=== PATIENT | male | born 1955 | race Two or more races ===

== ENCOUNTER 2017-11-10 13:30 | Day surgery (SDC) | payer OTHER ==
[2017-11-04 13:59] VITALS: BMI 27.3
[2017-11-10] MEDS: oxyCODONE HCL 10 MG SUSTAINED ACTING TABLET PO ONE ×2 (08:10→15:25)
--- NOTE | 2017-11-10 10:36 | HP ---
History & Physical Update - History History: No Change - Physical Physical: No Change - Assessment Assessment: No Change - Plan Plan: No Change (full H&P in chart from 11/05-)
[~2017-11-10 13:30] MED LIST: BSS (NA/CA/MG/K) BALANCED SALT SOLUTION OPHTH SOLN 15 ML BOTTLE ONE; LACTATED RINGERS SOLUTION 1,000 ML IV SCH; LIDOCAINE 1%/EPI 1:100000 (20 ML MULTI DOSE VIAL) ONE; MIDAZOLAM HCL 2 MG/2 ML SINGLE DOSE VIAL ONE; ONDANSETRON 4 MG/2 ML VIAL IVPUSH PRN; PROPOFOL 20 ML ONE; ROCURONIUM BROMIDE 50 MG/5 ML VIAL ONE; SUCCINYLCHOLINE CHLORIDE 200 MG/10 ML VIAL ONE; THROMBIN (BOVINE) 5,000 UNIT VIAL TP ONE; fentaNYL CITRATE 250 MCG/5 ML VIAL ONE; oxyCODONE HCL 5 MG TABLET PO PRN
--- NOTE | 2017-11-10 13:42 | OP ---
Operative Note - Note: Operative Date: 11/10/17 Pre-Operative Diagnosis: spinal stenosis, cervcial myelopathy Operation: anterior cervical disectomy fusion of C3-C4 and C4-C5 Surgeon: Peyman Valentino Assisted Living Assistant: Sophie Engle Anesthesiologist/APPOINTMENT SCHEDULER: Laith Craig Anesthesia: General Specimens Removed: disc of C3-4 and C4-5 Estimated Blood Loss (mls): 30 Fluid Volume Replaced (mls): 900 Operative Report Dictated: Yes
--- NOTE | 2017-11-10 13:43 | SURG ---
Surgery Client Leader Note Client Leader: Sophie Engle PA-C Date of Service: 11/10/17 Diagnosis: cervical stenosis, cervical myelopathy Procedure: anteior cervcial disectomy fusion of C3-C4 and C4-C5 I was present for the entirety of the operative procedure. For further detail, please refer to operative report. Visit type - Case Type Case Type: Scheduled - Emergency Emergency Visit: No - New patient This patient is new to me today: Yes Date on this admission: 11/10/17
[2017-11-10] MEDS ORDERED: oxyCODONE HCL 5 MG TABLET PO PRN ×2 (13:48)
[2017-11-10] MEDS ORDERED: PROMETHAZINE HCL 25 MG/1 ML VIAL IVPUSH PRN (13:48)
[2017-11-10] MEDS ORDERED: ONDANSETRON 4 MG/2 ML VIAL IVPUSH PRN (13:48)
[2017-11-10] MEDS: diazePAM 2 MG TABLET PO ONE ×2 (14:45→15:25)
[2017-11-10] MEDS: diazePAM 2 MG TABLET PO SCH ×2 (15:26→16:36)
[2017-11-10] MEDS: traMADol HCL 50 MG TABLET PO SCH ×2 (16:37→21:34)
[2017-11-10] MEDS: ACETAMINOPHEN 325 MG TABLET (FP) PO SCH ×2 (16:38→21:34)
[2017-11-10] MEDS ORDERED: DEXAMETHASONE SOD PHOSPHATE 10 MG/1 ML VIAL ONE (19:41)
[2017-11-10] MEDS: CEFAZOLIN 1 GM/D5W 1 GM/50 ML BAG IVPB SCH (19:56)
[2017-11-10] MEDS: DEXAMETHASONE SOD PHOSPHATE 20 MG/5 ML VIAL IVPB SCH (19:56)
--- NOTE | 2017-11-10 20:51 | OP ---
DATE OF OPERATION: 11/10/2017 PREOPERATIVE DIAGNOSIS: Cervical stenosis, C3-4, C4-5. POSTOPERATIVE DIAGNOSIS: Cervical stenosis, C3-4, C4-5. PROCEDURE PERFORMED: Anterior cervical diskectomy and fusion, C3-4, C4-5; placement of instrumentation C3-4, C4-5; placement of prosthetic cages, C3-4, C4-5. SURGEON: Peyman Valentino MD PERSONAL BANKER: MERISSA Hutchins ESTIMATED BLOOD LOSS: 50 mL INTRAVENOUS FLUIDS: Per Anesthesia. ANESTHESIA: General. COMPLICATIONS: None. DISPOSITION: Patient brought to the PACU in stable condition. INDICATION FOR SURGERY: The patient is a 62-year-old gentleman who has been noticing significant pain from his neck down his arms. He has also had difficulty with waking and using his hands. X-rays and MRI were completed which noted that he had cervical stenosis at C3-4 and C4-5. He had gone through an exhaustive course of treatment for this for which included medications, physical therapy, as well as injections. Unfortunately, his pain continued to persist. Risks, benefits, and alternatives were discussed, and the patient consented to surgery. DESCRIPTION OF PROCEDURE: Patient is brought to the operating room by the anesthesia staff. After appropriate patient identification was performed, general anesthesia was administered. Appropriate anesthetic lines were placed. Neuromonitoring leads were attached. SCDs were placed on the patient. The patient was placed supine on the OR bed with his arms tucked in at the side. Two needles were placed onto his neck to rach off the C3-4 and C4-5 level. An x-ray was taken to confirm this was correct. [place] were removed, and 10 mL of lidocaine with epinephrine were injected into his neck at this time. His neck was prepped and draped in a sterile manner. At this point, timeout was completed, and an incision was made on the left side of his neck. Dissection was carried down to the platysma. The platysma was cut in line with the skin incision. Next, the interval between the sternocleidomastoid and strap muscles was developed. Next, the interval between the carotid sheath and tracheoesophagus was developed. A needle was placed into the C3-4 disk. An x-ray was taken to confirm this was correct. Needle was removed. Longus coli muscles were elevated off, and retractor blades were placed in. A [place] pin was placed into the body of C3 and C5. A knife was used to incise the disks, and distraction was applied. The microscope was brought in. Using a series of pituitaries, Kerrisons, and curettes, diskectomies were completed at C3-4 and C4-5. The endplates were decorticated at this time. A cage filled with bone graft was placed in. The [place] pin was removed. A screw was placed into the body of C3, C4, and C5. AP and lateral x-rays confirmed the instrumentation to be in good position. Final tightening was performed. A drain was placed. The platysma was closed with 2-0 Vicryl suture. Skin was closed with 3-0 Monocryl suture. Dermabond was applied. Steri-Strips were applied. A sterile dressing was applied. Patient was placed supine on the OR bed, extubated in the OR, and brought to the PACU in stable condition. Kevin PAN/[id number]
[2017-11-11] MEDS: DEXAMETHASONE SOD PHOSPHATE 20 MG/5 ML VIAL IVPB SCH ×2 (02:10→08:15)
[2017-11-11] MEDS: ACETAMINOPHEN 325 MG TABLET (FP) PO SCH ×2 (03:17→09:33)
[2017-11-11] MEDS: traMADol HCL 50 MG TABLET PO SCH ×2 (03:17→09:33)
[2017-11-11] MEDS: CEFAZOLIN 1 GM/D5W 1 GM/50 ML BAG IVPB SCH (03:17)
[2017-11-11] MEDS: diazePAM 2 MG TABLET PO SCH (06:09)
[2017-11-11 06:28] VITALS: PULSE 82
[2017-11-11] MEDS ORDERED: DEXAMETHASONE SOD PHOSPHATE 4 MG/1 ML VIAL IVPB SCH (08:14)
--- NOTE | 2017-11-11 08:54 | DS ---
Physical Exam: SUBJECTIVE: Patient seen and examined no difficulty swallowing, tolerated clears. No pain, still having some numbness to upper extremities. OBJECTIVE: Vital Signs Temperature 98.0 F 11/11/17 06:00 Pulse Rate 82 11/11/17 06:00 Respiratory Rate 19 11/11/17 06:00 Blood Pressure 143/76 11/11/17 06:00 O2 Sat by Pulse Oximetry (%) 97 11/11/17 06:27 PHYSICAL EXAM GENERAL: The patient is awake, alert, and fully oriented, in no acute distress. NECK: Trachea midline, supple. Dressing bloody, changed today. The drain was not working so I stripped it and had minima(5ml) return. The drain was pulled and a clean/dry dressing was applied. No evidence of hematoma. Fullness to the right side of his neck, thyroid goiter. LUNGS: Breath sounds equal, clear to auscultation bilaterally. HEART: Regular rate and rhythm. ABDOMEN: Soft, nontender, nondistended. EXTREMITIES: 2+ pulses, warm, well-perfused, no edema. SCDs in place. NEUROLOGICAL: Cranial nerves II through XII grossly intact. Normal speech, gait sready. 5/5 flexion/extrension and technical operations manager strength equal b/l. LABS HOSPITAL COURSE: Date of Admission:11/10/17 Date of Discharge: 11/11/17 The patient was admitted to the Med-Surg Unit after an elective repair of their cervical stenosis. Now, s/p ACDF of C3-4 and C4-C5. The day of surgery, the patient ambulated the hallways with assistance. Narcotic and non-narcotic pain management control was achieved with an oral and IV approach. POD #1, the surgical drain was removed fully intact and without incident. An xray was obtained and confirmed hardware placement at C3-4C4 and C4-C5, no fractures or dislocations. Yudith-operative IV ABX were administered. DVT prophylaxis was achieved with SCDs and early ambulation. The patient ambulated with Physical Therapy and no services were recommended upon discharge. Narcotic scripts and or muscle relaxants were checked with [facility]ICINE SPECIALIST prior to escibe. The discharge instructions and an oral pain management plan were reviewed with the patient. All questions answered. Above plan discussed with Dr. Valentino and agreed. Minutes to complete discharge: 30
[2017-11-11 09:32] VITALS: BP 142/80; TEMP 97.9
--- NOTE | 2017-11-12 14:58 | PATH ---
Surgical Pathology Report Patient Name: GLADYS FLORES Med. Rec. #: [id number] /Age/Gender: 1955 (Age: 62) / M Account: [id number] Location: [facility] AMBULATORY Taken: 11/10/2017 Received: 11/10/2017 Reported: 11/12/2017 Physicians: Peyman Valentino M.D. Specimen(s) Received DISC C3-5 Clinical History Cervical stenosis Final Diagnosis DISC C3-C5, DISCECTOMY: CARTILAGE WITH DEGENERATIVE CHANGES. Electronically Signed Kayy Pfeiffer M.D. Gross Description Received in formalin labeled "disc C3-C5," is a 1.7 X 1.5 X 0.3 cm aggregate of starr fragments of fibrocartilaginous tissue. The specimen is entirely submitted in one cassette. /11/11/201711/11/2017
== END 2017-11-11 14:45 | disposition home or self-care (01) ==
LOC: FASU 13:30 → FM/S 14:55 → FASU 11-11 14:45
PROVIDERS: ATTEND Orthopaedic Surgery Orthopaedic Surgery of the Spine
PROC: 0RG10A0 Fusion of Cervical Vertebral Joint with Interbody Fusion Device, Anterior Approach, Anterior Column, Open Approach (ICD-10-PCS; 2017-11-10)
PROC: 0RG10K0 Fusion of Cervical Vertebral Joint with Nonautologous Tissue Substitute, Anterior Approach, Anterior Column, Open Approach (ICD-10-PCS; 2017-11-10)
PROC: 0RB30ZZ Excision of Cervical Vertebral Disc, Open Approach (ICD-10-PCS; principal; 2017-11-10 11:30)
DX: M48.02 Spinal stenosis, cervical region (principal)
CPT/HCPCS: 22551; 22552; 22845; 22853; C1889; 72050-TC-FY; 76001-TC-FY; 88304-TC; 94760; 97116-GP; 97162-GP; J1100